=== PATIENT | male | born 1950 | race Caucasian/White ===

== ENCOUNTER 2022-03-11 11:32 | Emergency (ER) | payer MEDICARE, SELFPAY ==
[2022-03-11 11:34] VITALS: BP 175/120; PULSE 103; RESP 18; TEMP 37; O2SAT 95; BMI 25.1
--- NOTE | 2022-03-11 11:49 | EX.ED.VIS.UR ---
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 He has had close contact with his friend who he brings with him who currently has had COVID for the past week confirmed by a test. Patient is unvaccinated, and has no medical problems that he knows of because he does not have a PCP nor does he ever go to one. He denies any dyspnea even when he is coughing. ROS ROS ED Constitutional Constitutional ED: Reports body ache(s), chills, fatigue, fever(s), headache(s), malaise and subjective Eyes Eyes: Denies change in vision or diplopia ENT ENT ED: Reports ear pain right (mild discomfort); Denies rhinorrhea or sore throat Cardiovascular Cardiovascular: Denies chest pain or palpitations Respiratory/Chest Respiratory/Chest: Reports cough; Denies dyspnea or dyspnea on exertion Gastrointestinal Gastrointestinal: Reports diarrhea; Denies abdominal pain, nausea or vomiting Genitourinary Genitourinary ED: Denies dysuria or hematuria Musculoskeletal Musculoskeletal: Denies back pain or neck pain Integumentary Denies abscess or rash Neurologic Neurologic: Reports headache(s); Denies paresthesias or weakness Psychiatric Psychiatric: Denies anxiety or suicidal thoughts PFSH PFSH Medical History no medical history no medical history Home Medications lisinopril 10 mg tablet 10 mg PO DAILY #20 tabs 03/11/22 [Rx Last Taken Unknown] Allergy/AdvReac Type Severity Reaction Status Date / Time No Known Allergies Allergy Verified 03/11/22 11:34 EXAM Physical Exam Const Vital Signs: 03/11/22 11:34 Temperature 98.6 F Temperature Source Temporal Pulse Rate 103 H Respiratory Rate 18 Blood Pressure 175/120 H Blood Pressure Mean 138 Pulse Ox 95 Oxygen Delivery Method Room Air Positive well nourished and well developed Constitutional Narrative: Well-appearing, no distress General Appearance ED: well developed and NAD HEENT Reports moist mucous membranes HEENT Narrative: Both TMs completely occluded by impacted cerumen deep in the EAC. No discomfort, edema, or discharge from the EAC with manipulation of the pinna or the tragus. normocephalic and atraumatic Eyes PERRL and EOMs intact bilaterally Neck full ROM, no lymphadenopathy and supple Resp normal respiratory effort and clear to auscultation bilaterally Cardio regular rate, regular rhythm and no murmurs Rate: Negative for tachycardic GI non-tender and non-distended Auscultation: normoactive bowel sounds Palpation: soft Back/Spine no CVA tenderness General Back: other FROM Extremity normal to inspection and no calf tenderness General Extremety ED: Negative for edema, pulses abnormal or tenderness General Extremity: Negative for edema or pulses abnormal Neuro oriented x3, CN's II-XII intact bilaterally, no sensory deficits noted and gait normal Sensorium / Orientation: awake and alert Motor Exam: strength 5/5 throughout Psych mental status grossly normal Skin no rashes or lesions noted and no wounds MDM MDM MDM Narrative Medical decision making narrative: COVID test is positive confirming COVID in this patient with known exposure. He is not hypoxic, he is not in respiratory distress, he is hypertensive which is probably chronic considering the fact that he never follows with a primary care doctor. I will recommend something for his blood pressure and give him a prescription, he does not meet criteria for any of the EUA antivirals right now because he has had symptoms for over 1 week. He does not require hospitalization or any other tests at this time. I discussed outpatient follow-up referred him to a PCP and discussed reasons to return he is comfortable with that plan, supportive care advised. Discharge Plan Triage Chief Complaint: Cough Other Complaint: Shortness of Breath ED Provider: Khanh Rodriguez Dx/Rx/DC Orders Clinical Impression: COVID-19, Episode of hypertension Instructions: Coronavirus Disease 2019 (COVID-19): Caring for Yourself or Others, Hypertension Dc Prescriptions: New lisinopril 10 mg tablet 10 mg PO DAILY Qty: 20 0RF Primary Care Provider: Care Physician,No Primary Referrals: López Velarde MD [Non-Staff] - As soon as possible Activity Restrictions/Additional Instructions: Try to get a home portable pulse oximeter and closely watch your oxygen levels periodically. If you stay below 90% for more than a minute or so, and/or you are feeling like your breathing is getting worse, return to the emergency department for further evaluation. Currently, CDC recommendations state that you should stay home through day 5 of symptoms, then as long as symptoms are improving, if you need to go to work or somewhere else you may for days 6-10 as long as you are wearing a mask the entire time. If you are feeling better after day 10 you may resume life is normal. Disposition Disposition: Home, Self Care
== END 2022-03-11 12:53 | disposition home or self-care (01) ==
PROVIDERS: Emergency Provider Emergency Medicine; Visit Provider Emergency Medicine
DX: U07.1 COVID-19 (principal); I10 Essential (primary) hypertension; R19.7 Diarrhea, unspecified; R51.9 Headache, unspecified; Z28.310 Unvaccinated for COVID-19
CPT/HCPCS: 87428; 99282

== ENCOUNTER 2023-12-14 16:36 | Inpatient (IN) | payer MEDICARE, SELFPAY ==
[2023-12-14] VITALS (10 sets, daily range): BP systolic 144–189; BP diastolic 68–134; PULSE 64–86; RESP 12–20; TEMP 36.3–36.8; O2SAT 95–99; BMI 26.7; BMI 26.4
--- NOTE | 2023-12-14 17:00 | EKG12_ITS ---
Test Reason : CP Blood Pressure : / mmHG Vent. Rate : 072 BPM Atrial Rate : 072 BPM P-R Int : 196 ms QRS Dur : 098 ms QT Int : 376 ms P-R-T Axes : 053 -01 129 degrees QTc Int : 411 ms Normal sinus rhythm Possible Left atrial enlargement Anteroseptal infarct , age undetermined ST & T wave abnormality, consider lateral ischemia Abnormal ECG Confirmed by WENDI WISEMAN, MECHE ([id number]), continuity editor SUNDAY GUERIN ([id number]) on 12/20/2023 6:16:47 AM Referred By: Confirmed By:AZ ADAME MD
--- NOTE | 2023-12-14 17:06 | ED.RN ---
NO OLD EKGS
--- NOTE | 2023-12-14 17:10 | ED.VIS.CHEST ---
HPI History of Present Illness Chief Complaint: Chest Pain Informant: patient and family Narrative Narrative: Patient here multiple complaints. Primary complaint is burning in his abdomen for the past month that is daily does get some relief with antiacids. Reports over the last 6 weeks 70 pound unintentional weight loss. Remote tobacco quit smoking tobacco 4 years ago however does not use marijuana. No history of colonoscopies or endoscopies in the past denies any black or bloody stools. Denies nausea or vomiting. He reports over the past few days noticed some chest heaviness bilateral upper arm pain. States symptoms relieved with antacids. States mild symptoms currently. He has not followed a doctor in 15 to 20 years. He states he last seen a physician was in the ER a year ago when he had COVID. Does not take any daily medications. [facility] Medical History Depression Anxiety Home Medications ?Medication ?Instructions ?Recorded ?Last Taken ?Type lisinopril 10 mg tablet 10 mg PO DAILY #20 tabs 03/11/22 Unknown Rx acetaminophen 325 mg tablet (Pain 650 mg PO Q4H PRN pain 12/14/23 Unknown History Relief (acetaminophen)) bismuth subsalicylate 262 mg/15 mL 524 mg PO Q1H PRN indigestion 12/14/23 Unknown History oral suspension (Digestive Relief) calcium carbonate (Antacid Ext Str 300 mg PO TID PRN dyspepsia 12/14/23 Unknown History (calcium carb)) ibuprofen 200 mg tablet (Advil) 400 mg PO TID PRN pain 12/14/23 Unknown History Allergy/AdvReac Type Severity Reaction Status Date / Time No Known Allergies Allergy Verified 12/14/23 16:36 Social History Smoking Status: Former smoker ROS ROS ED Constitutional Constitutional ED: Reports weight loss; Denies chills, fever(s) or sweats Eyes Eyes: Denies change in vision ENT ENT ED: Denies dysphagia or sore throat Cardiovascular Cardiovascular: Reports chest pain; Denies leg edema, palpitations or racing heartbeat Respiratory/Chest Respiratory/Chest: Denies cough, dyspnea or dyspnea on exertion Gastrointestinal Gastrointestinal: Reports abdominal pain; Denies diarrhea, nausea or vomiting Genitourinary Genitourinary ED: Denies dysuria, hematuria or urinary frequency Musculoskeletal Musculoskeletal: Denies back pain, extremity pain or neck pain Integumentary Denies rash or wounds Neurologic Neurologic: Denies headache(s), paresthesias or weakness Endocrine Endocrinology: Reports other EXAM Physical Exam Const Vital Signs: 12/14/23 16:36 12/14/23 16:46 12/14/23 17:14 Temperature 97.6 F L Temperature Source Temporal Pulse Rate 81 80 Respiratory Rate 18 13 Respiratory Effort Normal Non-Labored Respiratory Pattern Normal Blood Pressure 185/125 H 169/103 H Blood Pressure Mean 145 125 Pulse Ox 99 99 Oxygen Delivery Method Room Air Room Air 12/14/23 18:00 12/14/23 20:12 12/14/23 20:30 Temperature Temperature Source Pulse Rate 74 70 72 Respiratory Rate 14 18 12 Respiratory Effort Respiratory Pattern Blood Pressure 181/91 H 172/116 H 183/97 H Blood Pressure Mean 121 133 122 Pulse Ox 97 98 98 Oxygen Delivery Method Room Air Positive well nourished and well developed General Appearance ED: well developed and NAD HEENT Reports moist mucous membranes normocephalic and atraumatic Eyes EOMs intact bilaterally and conjunctivae normal General Eye ED: Yes normal appearance of both eyes Neck no lymphadenopathy and supple General: Negative for tenderness Chest Wall Chest: Negative for tenderness Resp normal respiratory effort and normal air movement Effort and Inspection: symmetric chest movement; Negative for respiratory distress Cardio regular rate, regular rhythm and no murmurs Peripheral Pulses: pulses 2+ throughout GI normal to inspection, nondistended, normoactive bowel sounds GI Narrative: Mild epigastric tenderness. No guarding or rebound. Negative Restrepo's or McBurney's tenderness. Palpation: Negative for guarding or rebound tenderness present Back/Spine no CVA tenderness and no thoracic nor lumbar tenderness Extremity normal to inspection General Extremety ED: Negative for edema or tenderness General Extremity: Negative for edema Neuro oriented x3 and no sensory deficits noted Sensorium / Orientation: awake and alert Skin no rashes or lesions noted and no wounds Heart Score History: Highly Suspicious ECG: Significant ST-Depression Age: >/= 65 years Risk Factors: 1 or 2 Risk Factors Troponin: >/=3 x Normal Limit Score: 9 MDM MDM MDM Narrative Medical decision making narrative: Interventions / MDM: Differential diagnosis: Non-ST elevated myocardial infarction, acute coronary syndrome Diagnosis considered but do not suspect: Masses however image studies were negative. My EKG interpretation: Sinus rate of 72, nonspecific T depressions lateral leads. No elevations. No old for comparison. Imaging independently reviewed and interpreted by myself: CT chest abdomen and pelvis: No masses, no acute process. Also read by radiology. External documents reviewed: ED visit 2021. Test considered but not ordered:N/A ED course: Patient nontoxic. Reported chest pains along with abdominal discomfort with reported unintentional weight loss of over 70 pounds. Will obtain EKG cardiac workup. Obtain abdominal labs. However we will plan for CT chest abdomen pelvis IV contrast to rule out cancers. EKG sinus rhythm, rate nonspecific ST depression lateral leads less than 0.5 mm. No elevations. 1834: Patient states very minimal symptoms at this time. He returned from CT. His troponin did return at 141. Creatinine 1.29 hemoglobin 15.6. I discussed NSTEMI concerns with the patient. Review of his CT by myself did not appreciate any masses. Discussed unclear for his weight loss at this time pending final read. Will plan for admission and anticoagulants after CT read. CT chest abdomen pelvis no masses. No acute process. Patient treated with aspirin and started on a heparin drip. On reevaluation he was symptom-free. All discussed with on-call cardiology Dr. Cuellar, agrees with heparin at this time. Would like his echocardiogram in the hospital by hospitalist as today is Saturday in a week given. He would like to continue troponin checks. This was discussed with hospitalist Dr. Montez for admission to PCU. Of note, reviewed patient's records from his ED visit February 2022, he had a weight of 81 kg and today's weight is 86 kg. Re-evaluation: stable Disposition discussed with patient/family/significant other: Patient Case discussed with consulting clinician: N/A This note was generated with [employer] dictation software. It may contain incorrect words, spelling, and punctuation that were not noted in checking the note before signing. Lab Data Labs: Laboratory Results - last 24 hr 12/14/23 12/14/23 12/14/23 17:10 18:55 20:17 WBC 9.3 RBC 5.12 Hgb 15.6 Hct 47.1 MCV 92.0 MCH 30.5 MCHC 33.1 RDW Std Deviation 41.6 RDW Coeff of Ivette 12.1 Plt Count 212 MPV 11.7 Immature Gran % (Auto) 0.200 Neut % (Auto) 62.7 Lymph % (Auto) 26.8 [place] % (Auto) 7.3 Eos % (Auto) 2.4 Baso % (Auto) 0.6 Absolute Neuts (auto) 5.8 Absolute Lymphs (auto) 2.48 Nucleated RBC % 0 PT 14.0 INR 1.1 APTT 28.4 Sodium 144 Potassium 3.8 Chloride 112 H Carbon Dioxide 28.0 Anion Gap 4 L BUN 19 H Creatinine 1.29 Estim Creat Clear Calc 55.94 Est GFR (MDRD) Af Amer 70 Est GFR (MDRD) Non-Af 58 L BUN/Creatinine Ratio 14.7 Glucose 114 H Calcium 9.2 Total Bilirubin 0.40 AST 18 ALT 32 Alkaline Phosphatase 91 Troponin I High Sens 141 H* 330 H* Total Protein 7.6 Albumin 3.6 Globulin 4.0 Albumin/Globulin Ratio 0.9 Lipase 22 TSH 2.880 Radiography Diagnostic Testing: Clinical Impression(s) from Imaging Studies Chest/Abdomen/Pelvis CT 12/14/23 18:14 IMPRESSION: Colonic diverticulosis. Small fatty umbilical hernia. Borderline prominence of the ascending aorta. Electronically Signed: Ryne Gaxiola DO at 19:40 EDT Reading Location ID and State: [facility] / [place] Tel [phone], Service support , Critical Care Time Critical Care Time: Yes Critical care time (excluding procedures): 30-74 minutes, Including time spent:, Discussing w/Patient &/or Family/Optomechanical Technician, Discussing w/Consultants, Arranging Admission or Transfer, Performing Direct Patient Care at Bedside and - (40 minutes) Discharge Plan Dx/Rx/DC Orders Clinical Impression: NSTEMI, initial episode of care, Uncontrolled hypertension, History of tobacco abuse, Cannabis abuse Disposition Disposition: Acute Care Hospital [facility] Discharge Date/Time: 12/14/23 21:35
[2023-12-14] MEDS: 0.9% Normal Saline (500mL Bag) 500 ML 1000 ML IV (17:12)
[2023-12-14 17:26] LABS: Absolute Lymphocyte Count 2.48 X10^3/uL (0.83-4.51); Absolute Neutrophil Count 5.8 X10^3/uL (2.0-7.7); Basophil# 0.06 X10^3/uL; Basophil% 0.6 % (0-1); Eosinophil# 0.22 X10^3/uL; Eosinophils% 2.4 % (0-5); Hematocrit 47.1 % (40-54); Hemoglobin 15.6 g/dL (13.0-16.5); Lymphocyte # 2.48 X10^3/ul (0.83-4.51); Lymphocyte % 26.8 % (19-41); Mean Corp Hgb Conc 33.1 g/dL (32-36); Mean Corpuscular Hgb 30.5 pg (27.0-32.0); Mean Platelet Vol. 11.7 fl (6.2-12.0); Monocyte# 0.68 X10^3/uL; Monocyte% 7.3 % (0-10); NRBC Flagged by Analyzer 0 % (0-5); Neutrophil # 5.81 X10^3/uL (2.7-7.7); Neutrophil % 62.7 % (47-70); Platelet Count 212 K/mm3 (150-450); RBC Distribution Width CV 12.1 % (11.6-14.6); RBC Distribution Width SD 41.6 fl (35.1-43.9); Red Blood Count 5.12 M/mm3 (4.6-6.2); White Blood Count 9.3 K/mm3 (4.4-11.0)
[2023-12-14 18:01] LABS: ALB/GLOB Ratio 0.9 RATIO (0.9-2.4); AST(SGOT) 18 U/L (15-37); Alanine Aminotransfer ALT/SGPT 32 U/L (16-61); Albumin, Serum 3.6 g/dL (3.2-5.0); Alkaline Phosphatase 91 U/L (45-117); Anion Gap 4 (5-15); BUN 19 mg/dL (7-18); BUN/Creat Ratio 14.7 RATIO (10-20); Calcium,Total 9.2 mg/dL (8.5-10.1); Chloride 112 mmol/L (98-107); Creatinine, Serum 1.29 mg/dL (0.70-1.30); EST Glomerular Filtration Rate 58 mL/min (>60); Est Glom Filt Rate - Afr Amer 70 mL/min (>60); Estimated Creatinine Clearance 55.94 ml/min; Glucose 114 mg/dL (74-106); Lipase 22 U/L (13-75); Potassium 3.8 mmol/L (3.5-5.1); Protein, Total 7.6 g/dL (6.4-8.2); Sodium Level 144 mmol/L (136-145); Troponin-I HS (w/2H Reflex) 141 pg/mL (3.0-78.0)
--- NOTE | 2023-12-14 18:14 | CT_ITS ---
STUDY: CT CHEST, ABDOMEN T PELVIS WITH CONTRAST REASON FOR EXAM: Male, 72 years old. chest pain, abdominal pain -- 70lb weight loss in 6 weeks RADIATION DOSAGE (If Supplied By Facility): CTDIvol = ( 20.69 ) mGy, DLP = ( 1509.61 ) mGycm TECHNIQUE: Transaxial imaging was performed following intravenous administration of IV 100mL Isovue-370. The protocol utilizes one or more of the following dose reduction techniques: automated exposure control, adjustment of mA and/or kV according to patient size,and/or use of iterative reconstruction technique. COMPARISON: FINDINGS: CHEST The lungs are normal. There is no demonstrated pleural abnormality. Normal heart and pericardium. Normal mediastinum. Normal hilar regions. Normal unenhanced pulmonary arteries. Borderline ascending aorta measuring 4 cm.. Normal aorta arch and descending thoracic aorta. Normal osseous structures. ABDOMEN Normal liver. Normal gallbladder and extrahepatic biliary system. Normal spleen. Normal pancreas. Normal bilateral adrenal glands. Normal right kidney. Normal left kidney. Normal visualized stomach. Normal small intestine. Diverticulosis of the colon. The appendix is visualized and appears normal. Normal abdominal aorta. Normal inferior vena cava. Normal retroperitoneum. Small fatty umbilical hernia. Degenerative vertebral changes. Scoliosis. PELVIS Normal urinary bladder. There is no pelvic fluid. There is no pelvic lymphadenopathy or mass lesion. Normal visualized pelvic arteries. CT/CT Chest, Abd, Pel w/Contrast IMPRESSION: Colonic diverticulosis. Small fatty umbilical hernia. Borderline prominence of the ascending aorta. Electronically Signed: Ryne Gaxiola DO at 19:40 EDT ,
[2023-12-14 19:19] LABS: Reflex Troponin-HS? (from REC) Y
[2023-12-14 19:50] LABS: Troponin-I HS 330 pg/mL (3.0-78.0)
[2023-12-14] MEDS: HEPARIN/D5w 25,000 UNITS 25,000 UNITS/250 ML IV.SOLN. 10 UNITS CONT INF (20:08)
[2023-12-14] MEDS: Aspirin 81 MG TAB.CHEW 324 MG PO (20:08)
--- NOTE | 2023-12-14 20:08 | PCM.HP.STD ---
[facility] - General General Date of Admission: 12/14/23 Date of Service: 12/14/23 Chief Complaint: Chest Pain, Abdominal Pain and Weight Loss. HPI Narrative ANTONIO TANNER, is a 72 M with a past medical history of essential hypertension, overweight; with BMI of 26.8 this admission, history of tobacco abuse; quit ~4 years ago, cannabis abuse, strong family history of CAD in his father and sister, history of COVID-19 (2021), history of depression with anxiety and medical noncompliance who presents to [facility] complaining of chest pain, abdominal pain and weight loss. Mr. Tanner reports his symptoms began approximately six weeks prior to admission with with an unintentional ~70# weight loss. Then about one month ago he began to develop severe daily abdominal pain that was epigastric and burning treated with OTC antacids as needed. Then for the past few days he has noticed a sensation of chest heaviness that radiates into both of his arms so he finally decided to come in for further evaluation and treatment. He further explained that he has not been followed by a PCP for the past 15-20 years with no endoscopies or health maintenance and he is currently taking no medications. He denies associated fever, chills, nausea, vomiting, diaphoresis, black or bloody stools, leg swelling, known previous PR or other recent illness/traumatic injury. In the ER he was noted to have an elevated initial troponin 141 pg/mL present on admission followed by a second upwardly trending troponin of 330 pg/mL that surged to 5,933 pg/mL consistent with NSTEMI in the setting of previous tobacco abuse and chronic medical noncompliance and he was then admitted to the PCU for ongoing care for a stay that is expected to extend beyond 2 midnights. [facility] Medical History Depression Anxiety Home Medications ?Medication ?Instructions ?Recorded ?Last Taken ?Type lisinopril 10 mg tablet 10 mg PO DAILY #20 tabs 03/11/22 Unknown Rx acetaminophen 325 mg tablet (Pain 650 mg PO Q4H PRN pain 12/14/23 Unknown History Relief (acetaminophen)) bismuth subsalicylate 262 mg/15 mL 524 mg PO Q1H PRN indigestion 12/14/23 Unknown History oral suspension (Digestive Relief) calcium carbonate (Antacid Ext Str 300 mg PO TID PRN dyspepsia 12/14/23 Unknown History (calcium carb)) ibuprofen 200 mg tablet (Advil) 400 mg PO TID PRN pain 12/14/23 Unknown History Allergy/AdvReac Type Severity Reaction Status Date / Time No Known Allergies Allergy Verified 12/14/23 16:36 Social History Smoking Status: Former smoker ROS ROS Narrative Review of Systems: Constitutional: Patient admits to recent unintentional weight loss of ~70# but he denies fever or chills as per HPI. Eyes: Patient denies changes in vision or discharge from eyes. ENT: Patient denies headache, runny nose or sore throat. CV: Patient admits to chest pain radiating to his arms as per HPI. He denies palpitations or heart racing. Resp: Patient denies SOB or cough. GI: Patient admits to abdominal pain but he denies nausea, vomiting, diarrhea or constipation. : Patient denies dysuria, hematuria or urinary hesitancy. MSK: Patient denies arthralgias or myalgias. Skin: Patient denies rash, abscess or jaundice. Psych: Patient denies symptoms of uncontrolled depression or anxiety. Neuro: Patient denies headache, paresthesias or focal neurologic weakness. Allergy: Patient denies lip swelling, tongue swelling or urticaria. Hematology: Patient denies easy bleeding or easy bruisability. Endocrinology: Patient denies polyuria, polydipsia or polyphagia. 14 point ROS otherwise negative except for positives noted above in HPI. Vital Signs Vital Signs Vital Signs: 12/14/23 16:36 12/14/23 16:46 12/14/23 17:14 Temperature 97.6 F L Temperature Source Temporal Pulse Rate 81 80 Respiratory Rate 18 13 Respiratory Effort Normal Non-Labored Respiratory Pattern Normal Blood Pressure 185/125 H 169/103 H Blood Pressure Mean 145 125 Pulse Ox 99 99 Oxygen Delivery Method Room Air Room Air 12/14/23 18:00 Temperature Temperature Source Pulse Rate 74 Respiratory Rate 14 Respiratory Effort Respiratory Pattern Blood Pressure 181/91 H Blood Pressure Mean 121 Pulse Ox 97 Oxygen Delivery Method Room Air Weight Weight: 192 lb Body Mass Index (BMI) 26.7 Physical Exam Const alert, oriented x3, no apparent distress and average body habitus General Appearance: cooperative HEENT normocephalic, head/scalp atraumatic, hearing grossly normal bilaterally and moist oral mucous membranes Eyes PERRL and EOMs intact bilaterally Neck no lymphadenopathy and supple Resp normal respiratory effort, no retractions, no use of accessory muscles and clear to auscultation bilaterally Cardio regular rate and regular rhythm GI normal to inspection, nondistended, normoactive bowel sounds, soft to palpation and non-distended GI Narrative: Mild epigastric TTP. Extremity normal to inspection, full ROM and no clubbing, cyanosis or edema Skin Skin Narrative: Patient has no evidence of rash, abscess or jaundice. Neuro oriented x3, CN's II-XII intact bilaterally, moves all extremities and no focal motor deficits Sensorium / Orientation: awake, alert, oriented to person, oriented to place and oriented to time Speech: speech normal Motor Exam: strength 5/5 throughout Psych affect normal Results Medical Records Data Attestation: I reviewed the patient's medical records Lab / Micro Data Attestation: I reviewed the patient's lab results. 12/15/23 02:01 12/15/23 02:01 Labs: Laboratory Results - last 24 hr 12/14/23 17:10: WBC 9.3, RBC 5.12, Hgb 15.6, Hct 47.1, MCV 92.0, MCH 30.5, MCHC 33.1, RDW Std Deviation 41.6, RDW Coeff of Ivette 12.1, Plt Count 212, MPV 11.7, Immature Gran % (Auto) 0.200, Neut % (Auto) 62.7, Lymph % (Auto) 26.8, [place]er % (Auto) 7.3, Eos % (Auto) 2.4, Baso % (Auto) 0.6, Absolute Neuts (auto) 5.8, Absolute Lymphs (auto) 2.48, Nucleated RBC % 0, Sodium 144, Potassium 3.8, Chloride 112 H, Carbon Dioxide 28.0, Anion Gap 4 L, BUN 19 H, Creatinine 1.29, Estim Creat Clear Calc 55.94, Est GFR (MDRD) Af Amer 70, Est GFR (MDRD) Non-Af 58 L, BUN/Creatinine Ratio 14.7, Glucose 114 H, Calcium 9.2, Total Bilirubin 0.40, AST 18, ALT 32, Alkaline Phosphatase 91, Troponin I High Sens 141 H*, Total Protein 7.6, Albumin 3.6, Globulin 4.0, Albumin/Globulin Ratio 0.9, Lipase 22 12/14/23 18:55: Troponin I High Sens 330 H* Imaging Radiology Impression Chest/Abdomen/Pelvis CT 12/14/23 18:14 IMPRESSION: Colonic diverticulosis. Small fatty umbilical hernia. Borderline prominence of the ascending aorta. Electronically Signed: Ryne Gaxiola DO at 19:40 EDT Reading Location ID and State: [facility] / [place] Tel [phone], Service support , Assessment & Plan Assessment/Plan (1) NSTEMI, initial episode of care: (2) Uncontrolled hypertension: (3) Medical non-compliance: (4) History of tobacco abuse: (5) GERD (gastroesophageal reflux disease): QUALIFIERS: Esophagitis presence: esophagitis presence not specified Qualified Code(s): K21.9 - Gastro-esophageal reflux disease without esophagitis (6) Cannabis abuse: PLAN: Plan 1. NSTEMI; evidenced by elevated initial troponin 141 pg/mL present on admission followed by a second upwardly trending troponin of 330 pg/mL with a strong family history of CAD in his father and sister - Admit to PCU. Continue IV Heparin and ECASA begun in the ER and add statin plus Plavix. Serialize troponin. Check echocardiogram to evaluate LVEF. Give Tylenol prn [id number] (level 1-5/10) pain or fever. Give Morphine IV prn do severe (level 6-10/10) pain. Finally, we will consult [facility] to see this patient on-rounds in the AM for recommendations regarding LHC in the AM with help appreciated in advance. 2. Uncontrolled Hypertension of 185/125 mmHg present on admission in the setting of Chronic Medical Noncompliance complicating #1 - Start Metoprolol 50 mg PO BID plus give prn IV Hydralazine for systolic blood pressure > 160 mmHg. 3. History of Chronic Tobacco Abuse (stopped ~4 years ago) with switch to Cannabis Abuse compounding #1 & #2 - Cannabis Cessation will be strongly encouraged. 4. Suspected GERD with chronic epigastric abdominal pain treated with OTC antacids adding to the complexity of #1 - #3 - Start Protonix 40 mg PO daily and consider referral to GI after discharge for outpatient endoscopic evaluation with possible PUD. 5. Overweight; with BMI of 26.8 this admission - Patient allegedly recently lost ~70#. Check TSH. 6. History of COVID-19 (2021) - Noted. 7. History of depression with anxiety - Stable with patient currently on no psychotropic agents. 8. DVT prophylaxis - Patient already on IV Heparin for #1. Total time: Approximately 75 minutes. Charges/Coding Visit Charges Inpatient E&M: 28251 Init Hosp L3
[2023-12-14] MEDS: Heparin Injection (Vial) 5,000 UNIT/ML VIAL 4000 UNIT IV (20:19)
[2023-12-14 20:44] LABS: International Normalized Ratio 1.1
[2023-12-14 20:45] LABS: Partial Thromboplast Time 28.4 Seconds (24.1-36.2)
--- NOTE | 2023-12-14 20:49 | EKG12_ITS ---
Test Reason : AM EKG Blood Pressure : / mmHG Vent. Rate : 064 BPM Atrial Rate : 064 BPM P-R Int : 182 ms QRS Dur : 096 ms QT Int : 418 ms P-R-T Axes : 027 -14 107 degrees QTc Int : 431 ms Normal sinus rhythm Inferior infarct , age undetermined Anteroseptal infarct , age undetermined T wave abnormality, consider lateral ischemia Abnormal ECG When compared with ECG of 15-DEC-2023 04:54, MANUAL COMPARISON REQUIRED, DATA IS UNCONFIRMED Confirmed by WENDI WISEMAN, MECHE ([id number]), newspaper editor managing SUNDAY GUERIN ([id number]) on 12/20/2023 9:52:25 AM Referred By: VALVERDE Confirmed By:AZ ADAME MD
[2023-12-14] MEDS: Pantoprazole Sodium 40 MG Tablet PO (22:11)
[2023-12-14] MEDS: Atorvastatin Calcium 40 MG Tablet PO (22:11)
[2023-12-14] MEDS: Clopidogrel Bisulfate 75 MG Tablet PO (22:11)
[2023-12-14] MEDS: Metoprolol Tartrate 50 MG Tablet PO (22:11)
[2023-12-14 23:40] LABS: Troponin-I HS 5933 pg/mL (3.0-78.0)
[2023-12-15] VITALS (11 sets, daily range): BP systolic 105–134; BP diastolic 72–99; PULSE 59–91; RESP 16–18; TEMP 36.3–36.6; O2SAT 93–96
[2023-12-15 02:20] LABS: Hematocrit 43.9 % (40-54); Hemoglobin 14.8 g/dL (13.0-16.5); Mean Corp Hgb Conc 33.7 g/dL (32-36); Mean Corpuscular Hgb 30.6 pg (27.0-32.0); Mean Corpuscular Volume 90.9 fL (80-94); Mean Platelet Vol. 11.6 fl (6.2-12.0); Platelet Count 212 K/mm3 (150-450); RBC Distribution Width CV 12.2 % (11.6-14.6); RBC Distribution Width SD 40.3 fl (35.1-43.9); Red Blood Count 4.83 M/mm3 (4.6-6.2); White Blood Count 10.4 K/mm3 (4.4-11.0)
[2023-12-15 02:30] LABS: Partial Thromboplast Time 61.1 Seconds (24.1-36.2)
[2023-12-15 02:43] LABS: D-Dimer Quantitative (DVT/PE) < 0.27 FEU/ug/m (0.27-0.49)
[2023-12-15 02:46] LABS: ALB/GLOB Ratio 0.9 RATIO (0.9-2.4); AST(SGOT) 69 U/L (15-37); Alanine Aminotransfer ALT/SGPT 35 U/L (16-61); Albumin, Serum 3.3 g/dL (3.2-5.0); Alkaline Phosphatase 76 U/L (45-117); Anion Gap 6 (5-15); BUN 14 mg/dL (7-18); BUN/Creat Ratio 14.6 RATIO (10-20); Calcium,Total 9.2 mg/dL (8.5-10.1); Chloride 112 mmol/L (98-107); Cholesterol 161 mg/dL (200); Creatinine, Serum 0.96 mg/dL (0.70-1.30); EST Glomerular Filtration Rate 82 mL/min (>60); Est Glom Filt Rate - Afr Amer 99 mL/min (>60); Estimated Creatinine Clearance 75.17 ml/min; Globulin 3.7 g/dL (2.2-4.2); Glucose 114 mg/dL (74-106); High Density Lipoprotein 41 mg/dL; Potassium 3.5 mmol/L (3.5-5.1); Sodium Level 141 mmol/L (136-145); Triglycerides 117 mg/dL; Very Low Density Lipoprotein 23 mg/dL (5-40)
--- NOTE | 2023-12-15 04:48 | EKG12_ITS ---
Test Reason : CP Blood Pressure : / mmHG Vent. Rate : 052 BPM Atrial Rate : 052 BPM P-R Int : 200 ms QRS Dur : 092 ms QT Int : 436 ms P-R-T Axes : 044 -29 112 degrees QTc Int : 405 ms Sinus bradycardia with sinus arrhythmia Inferior infarct , age undetermined Anteroseptal infarct , age undetermined ST & T wave abnormality, consider lateral ischemia Abnormal ECG When compared with ECG of 14-DEC-2023 22:07, MANUAL COMPARISON REQUIRED, DATA IS UNCONFIRMED Confirmed by WENDI WISEMAN, MECHE ([id number]), industrial editor SUNDAY GUERIN ([id number]) on 12/20/2023 9:53:09 AM Referred By: VALVERDE Confirmed By:AZ ADAME MD
[2023-12-15] MEDS: Nitroglycerin Oint 1 INCH PACKET TD ×3 (05:54→18:41)
--- NOTE | 2023-12-15 05:55 | ECHOD_ITS ---
Reason For Study: Chest pain Procedure This was a 2D Doppler, Color Flow transthoracic echocardiogram. Exam performed portable in patient room. Left Ventricle Normal LV size. The estimated ejection fraction is 40-45 %. Unable to assess diastolic dysfunction. Hypokinesis of the septum, anterior wall, apex. Right Ventricle Normal RV size. Normal systolic function. Atria The left and right atria are normal. No doppler evidence for ASD. Mitral Valve There is moderate mitral annular calcification. There is no mitral valve stenosis. Trivial mitral valve insufficiency. Tricuspid Valve There is no tricuspid stenosis. Trivial tricuspid valve insufficiency. Unable to estimate RV systolic pressure due to insufficient tricuspid regurgitant envelope. Aortic Valve Trisinus/trileaflet aortic valve. Aortic sclerosis, no stenosis. There is no aortic stenosis. Mild (1+) aortic valve insufficiency. Pulmonic Valve There is no pulmonic valvular stenosis. No pulmonic valve insufficiency. Great Vessels Normal aortic root. Pericardium/Pleural No pericardial effusion. MMode/2D Measurements & Calculations LVIDd: 5.1 cm IVSd: 1.2 cm Ao root diam: 3.9 cm LVIDs: 3.8 cm LVPWd: 1.2 cm RVDd: 2.7 cm FS: 24.3 % LAV(MOD-bp): 64.7 ml LVAd ap4: 40.4 cm2 LVAd ap2: 36.6 cm2 LAV(MOD-bp) Indexed: 31.4 ml/m2 LVLd ap4: 9.9 cm LVLd ap2: 9.8 cm LAV(MOD-sp2): 59.3 ml EDV(MOD-sp4): 137.5 ml EDV(MOD-sp2): 112.2 ml LAV(MOD-sp4): 54.1 ml EDV(sp4-el): 140.7 ml EDV(sp2-el): 115.6 ml LVAs ap4: 29.7 cm2 LVAs ap2: 27.1 cm2 LVLs ap4: 9.1 cm LVLs ap2: 9.2 cm ESV(MOD-sp4): 80.7 ml ESV(MOD-sp2): 66.7 ml ESV(sp4-el): 82.1 ml ESV(sp2-el): 67.8 ml EF(MOD-sp4): 41.3 % EF(MOD-sp2): 40.6 % EF(sp4-el): 41.7 % SV(MOD-sp4): 56.8 ml SV(MOD-sp2): 45.5 ml SV(sp4-el): 58.6 ml LA dimension(2D): 4.0 cm LA A4 area: 17.7 cm2 RA A4 area: 12.8 cm2 Time Measurements MV dec time: 0.18 sec Doppler Measurements & Calculations MV E max nate: 81.1 cm/sec Lat Peak E' Nate: 6.7 cm/sec Med Peak E' Nate: 4.4 cm/sec MV A max nate: 103.2 cm/sec E/E' lat: 12.1 E/E' med: 18.3 MV E/A: 0.79 MV V2 max: 122.9 cm/sec MV dec slope: 461.9 cm/sec2 Ao V2 max: 119.3 cm/sec MV max P.0 mmHg Ao max P.7 mmHg MV V2 mean: 48.0 cm/sec Ao V2 mean: 88.0 cm/sec MV mean P.2 mmHg Ao mean P.6 mmHg MV V2 VTI: 40.4 cm Ao V2 VTI: 30.4 cm AV (velocity ratio): 0.70 AI max nate: 415.9 cm/sec LV V1 max: 90.5 cm/sec PA V2 max: 60.9 cm/sec AI max P.2 mmHg LV V1 max P.3 mmHg PA V2 mean: 43.6 cm/sec AI dec slope: 189.2 cm/sec2 LV V1 mean P.0 mmHg AI P1/2t: 643.8 msec LV V1 mean: 66.6 cm/sec LV V1 VTI: 21.1 cm TR max nate: 186.7 cm/sec TR max P.9 mmHg ECHO/Echo Complete Interpretation Summary The estimated ejection fraction is 40-45 %. Hypokinesis of the septum, anterior wall, apex Unable to assess diastolic dysfunction. Trivial mitral valve insufficiency. Mild (1+) aortic valve insufficiency. Ordering Physician: Shaun Pickett Performed By: Deepa Pham RCS
[2023-12-15] MEDS: Aspirin E.C. 81 MG Tablet PO (08:06)
[2023-12-15] MEDS: Metoprolol Tartrate 50 MG Tablet PO (08:06)
[2023-12-15] MEDS: Pantoprazole Sodium 40 MG Tablet PO (08:06)
[2023-12-15] MEDS: Clopidogrel Bisulfate 75 MG Tablet PO (08:06)
[2023-12-15 08:31] LABS: Partial Thromboplast Time 55.3 Seconds (24.1-36.2)
--- NOTE | 2023-12-15 09:19 | PCM.PN.HOSP ---
Reason for Visit Reason for Visit: Diagnoses Cannabis abuse, uncomplicated (12/14/23) Essential (primary) hypertension (12/14/23) Non-ST elevation (NSTEMI) myocardial infarction (12/14/23) Gastro-esophageal reflux disease without esophagitis (12/14/23) Personal history of nicotine dependence (12/14/23) Patient's noncompliance with other medical treatment and regimen due to unspecified reason (12/14/23) Subjective Subjective Feels well. No chest pain. Objective Data Objective Data Vital Signs: Vital Signs Temp Pulse Resp BP Pulse Ox O2 Del Method 36.5 C L 61 18 120/76 96 Room Air 12/15/23 08:09 12/15/23 08:09 12/15/23 08:09 12/15/23 08:09 12/15/23 08:21 12/15/23 08:21 Oxygen Delivery Method Room Air Weight: 85.9 kg Body Mass Index (BMI) 26.4 Intake & Output: Intake and Output for Last 24 Hours 12/13/23 12/14/23 12/15/23 23:59 23:59 23:59 Intake Total 620 / 620 240 / 240 Balance 620 / 620 240 / 240 Lab / Micro Data 12/15/23 02:01 12/15/23 02:01 Labs: Laboratory Results - last 24 hr 12/14/23 17:10: WBC 9.3, RBC 5.12, Hgb 15.6, Hct 47.1, MCV 92.0, MCH 30.5, MCHC 33.1, RDW Std Deviation 41.6, RDW Coeff of Ivette 12.1, Plt Count 212, MPV 11.7, Immature Gran % (Auto) 0.200, Neut % (Auto) 62.7, Lymph % (Auto) 26.8, [place] % (Auto) 7.3, Eos % (Auto) 2.4, Baso % (Auto) 0.6, Absolute Neuts (auto) 5.8, Absolute Lymphs (auto) 2.48, Nucleated RBC % 0, Sodium 144, Potassium 3.8, Chloride 112 H, Carbon Dioxide 28.0, Anion Gap 4 L, BUN 19 H, Creatinine 1.29, Estim Creat Clear Calc 55.94, Est GFR (MDRD) Af Amer 70, Est GFR (MDRD) Non-Af 58 L, BUN/Creatinine Ratio 14.7, Glucose 114 H, Calcium 9.2, Total Bilirubin 0.40, AST 18, ALT 32, Alkaline Phosphatase 91, Troponin I High Sens 141 H*, Total Protein 7.6, Albumin 3.6, Globulin 4.0, Albumin/Globulin Ratio 0.9, Lipase 22, TSH 2.880 12/14/23 18:55: Troponin I High Sens 330 H* 12/14/23 20:17: PT 14.0, INR 1.1, APTT 28.4 12/14/23 22:30: Troponin I High Sens 5933 H* 12/15/23 02:01: WBC 10.4, RBC 4.83, Hgb 14.8, Hct 43.9, MCV 90.9, MCH 30.6, MCHC 33.7, RDW Std Deviation 40.3, RDW Coeff of Ivette 12.2, Plt Count 212, MPV 11.6, APTT 61.1 H, D-Dimer Quant (PE/DVT) < 0.27 L, Sodium 141, Potassium 3.5, Chloride 112 H, Carbon Dioxide 23.0, Anion Gap 6, BUN 14, Creatinine 0.96, Estim Creat Clear Calc 75.17, Est GFR (MDRD) Af Amer 99, Est GFR (MDRD) Non-Af 82, BUN/Creatinine Ratio 14.6, Glucose 114 H, Calcium 9.2, Total Bilirubin 0.50, AST 69 H, ALT 35, Alkaline Phosphatase 76, Total Protein 7.0, Albumin 3.3, Globulin 3.7, Albumin/Globulin Ratio 0.9, Triglycerides 117, Cholesterol 161, LDL Cholesterol 97, VLDL Cholesterol 23, HDL Cholesterol 41, TSH 4.170 H 12/15/23 08:00: APTT 55.3 H Radiography Diagnostic Testing: Radiology Impression Chest/Abdomen/Pelvis CT 12/14/23 18:14 IMPRESSION: Colonic diverticulosis. Small fatty umbilical hernia. Borderline prominence of the ascending aorta. Electronically Signed: Ryne Gaxiola DO at 19:40 EDT , Physical Exam Const alert and no apparent distress HEENT head/scalp atraumatic and moist oral mucous membranes Resp normal respiratory effort, no retractions, no use of accessory muscles and clear to auscultation bilaterally Cardio regular rate, regular rhythm, S1 normal heart sound and S2 normal heart sound GI normal to inspection, nondistended, normoactive bowel sounds, soft to palpation, non-tender and non-distended Extremity normal to inspection Psych affect normal Assessment & Plan Assessment/Plan (1) NSTEMI, initial episode of care: (2) Uncontrolled hypertension: (3) Medical non-compliance: (4) History of tobacco abuse: (5) GERD (gastroesophageal reflux disease): QUALIFIERS: Esophagitis presence: esophagitis presence not specified Qualified Code(s): K21.9 - Gastro-esophageal reflux disease without esophagitis (6) Cannabis abuse: PLAN: Plan NSTEMI: trops up to 5933. heparin gtt, ASA, clopidogrel. Echo Cards consult. Plan for [facility] on 12/15 Uncontrolled Hypertension 185/125 mmHg present on admission. Improved subsequently. Start Metoprolol 50 mg PO BID plus give prn IV Hydralazine for systolic blood pressure > 160 mmHg. Chronic conditions: Cannabis Abuse: complicates care and recovery Suspected GERD with chronic epigastric: pantoprazole. Follow up with GI as outpt. VTE prophylaxis not indicated as already anticoagulated. Charges/Coding Visit Charges Inpatient E&M: 49478 Subs Hosp L2
--- NOTE | 2023-12-15 11:22 | CON.PCM.CA_ITS ---
Assessment & Plan Assessment/Plan (1) NSTEMI, initial episode of care: PLAN: Patient's symptoms are consistent with angina. He had postprandial discomfort in his lower thorax upper abdomen that he equated to ulcer disease. However it was also concomitant with bilateral arm achiness that occurred simultaneously. This has been going on for approximately a month and he has had a significant weight loss that has not been documented objectively. However, he does explicitly describe significant wasting of his lower extremities and abdominal prominence. The patient's enzymes did go up to 5900 and the last set was back down to 4100. His EKG showed sinus bradycardia at [address]-T wave changes consistent with LVH. When he had an episode of diaphoresis at 0500 hrs. this morning there was no significant new changes on his EKG he consistently has ST segment depression in aVL and V5 and V6. (2) Uncontrolled hypertension: PLAN: Patient's blood pressure is coming under better control with the beta- joss and his JESS inhibitor we reinstituted that he was on in his home environment. (3) Recent unexplained weight loss: PLAN: The patient had an abdominal scan which showed diverticulosis but no significant masses. Given his vivid description of his weight loss further evaluation will be deferred to the primary service. The patient was seen in the emergency department in 2021 and at that time his weight was 81 kg. Last evening when he was in the emergency department he was weighed at 87.1 kg. However he reports significant loss in his abdominal girth and significant muscle wasting of his lower extremities. He had she reports that family members had encouraged him to come to the hospital for evaluation. He had been reluctant to do so and been treating himself homeopathically. PLAN: Plan 1. Continue current medical therapy and add lisinopril 10 mg daily. 2. Will schedule for left heart catheterization tomorrow with Dr. Hayes. 3. Obtain 2D echocardiogram to evaluate potential structural issues or LV dysfunction. 4. Dr. Hayes will be following the patient next week in my absence. HPI Consult Data Date of Consult: 12/15/23 HPI Narrative HPI Narrative: ANTONIO KHOURY, is a 72 M who presents with an unusual constellation of complaints. He originally came to the emergency department because over the last month he has experienced a significant weight loss that he described as 70 pounds. However in 2021 when he was in the emergency department with COVID his weight was 81 kg and on this admission is 87 kg. However he vividly describes a loss of his protuberant abdomen and significant muscle mass in his lower extremities over the last month. He had multiple scans done looking for possible cancer which is what his fear was from coming to the emergency department and all that was found was diverticuli. The patient has a history of intermittent alcohol use and describes himself as a controlled alcoholic. He also uses THC. He is chief complaint was abdominal discomfort which occurred after eating and was associated with bilateral arm discomfort. His initial troponin was 131 it went up to 330 and then to 5900. His EKG was sinus rhythm with ST depressions in aVL and V5 and V6. He did have an episode of diaphoresis approximately 0500 hrs. this morning that resolved with nitroglycerin paste. Currently he is resting comfortably in recumbent position in no distress. The patient is a former smoker, he has a history of hypertension which she has been treating with nontraditional therapies. There is no known definitive family history of coronary disease. He is not aware of his lipid status. And he is not diabetic to his knowledge. [facility] Medical History Depression Anxiety Home Medications ?Medication ?Instructions ?Recorded ?Last Taken ?Type lisinopril 10 mg tablet 10 mg PO DAILY #20 tabs 03/11/22 Unknown Rx acetaminophen 325 mg tablet (Pain 650 mg PO Q4H PRN pain 12/14/23 Unknown History Relief (acetaminophen)) bismuth subsalicylate 262 mg/15 mL 524 mg PO Q1H PRN indigestion 12/14/23 Unknown History oral suspension (Digestive Relief) calcium carbonate (Antacid Ext Str 300 mg PO TID PRN dyspepsia 12/14/23 Unknown History (calcium carb)) ibuprofen 200 mg tablet (Advil) 400 mg PO TID PRN pain 12/14/23 Unknown History Allergy/AdvReac Type Severity Reaction Status Date / Time No Known Allergies Allergy Verified 12/14/23 16:36 Social History Smoking Status: Former smoker ROS Constitutional Constitutional: Reports as per HPI Eyes Eyes: Reports systems reviewed and no addt'l complaints, except as documented ENT HEENT: Reports systems reviewed and no addt'l complaints, except as documented Cardiovascular Cardiovascular: Reports as per HPI Respiratory/Chest Respiratory/Chest: Reports as per HPI Gastrointestinal Gastrointestinal: Reports as per HPI Genitourinary Genitourinary: Reports systems reviewed and no addt'l complaints, except as documented Musculoskeletal Musculoskeletal: Reports as per HPI Integumentary Integumentary: Reports systems reviewed and no addt'l complaints, except as documented Neurologic Neurologic: Reports systems reviewed and no addt'l complaints, except as documented Psychiatric Psychiatric: Reports systems reviewed and no addt'l complaints, except as documented Endocrine Endocrinology: Reports as per HPI Allergic/Immunologic Allergic/Immunologic: Reports systems reviewed and no addt'l complaints, except as documented Physical Exam Const alert and oriented x3 HEENT normocephalic Eyes PERRL Neck no JVD and no carotid bruits Chest inspection of chest normal Resp normal respiratory effort and clear to auscultation bilaterally Cardio regular rate, regular rhythm, S1 normal heart sound, S2 normal heart sound, no murmurs, no rub and no gallops Peripheral Pulses: radial pulses present bilateral 2+, posterior tibial pulses present bilateral 1+ and dorsalis pedis pulses present bilateral 1+ GI soft to palpation Extremity no pedal edema Skin no rashes or lesions noted Neuro Neuro Narrative: Alert and oriented x 3 Psych mental status grossly normal Psych Narrative: Very talkative with somewhat pressured speech. Risk Stratification Risk Stratification Applicable: Yes Age >/= 65: Yes >/= 3 CAD Risk Factors (HTN, HLD, DM, family hx of CAD, or current smoker): No Aspirin Use in the Past 7 Days: No Severe Angina (>/= episodes in 24 hours): Yes EKG ST Changes >/= 0.5mm: No Positive Cardiac Marker: Yes MILANA Risk Stratification Score: 3 MILANA % Risk: 13% Risk Charges/Coding Visit Charges Inpatient E&M: 78120 Init Hosp L3 Objective Data Vital Signs: Vital Signs Temp Pulse Resp BP Pulse Ox O2 Del Method 97.7 F L 61 18 120/76 96 Room Air 12/15/23 08:09 12/15/23 08:09 12/15/23 08:09 12/15/23 08:09 12/15/23 08:21 12/15/23 08:21 Oxygen Delivery Method Room Air Weight: 189 lb 6.033 oz Body Mass Index (BMI) 26.4 Intake & Output: Intake and Output for Last 24 Hours 12/13/23 12/14/23 12/15/23 23:59 23:59 23:59 Intake Total 620 / 620 240 / 240 Balance 620 / 620 240 / 240 Lab / Micro Data 12/15/23 02:01 12/15/23 02:01 Labs: Laboratory Results - last 24 hr 12/14/23 17:10: WBC 9.3, RBC 5.12, Hgb 15.6, Hct 47.1, MCV 92.0, MCH 30.5, MCHC 33.1, RDW Std Deviation 41.6, RDW Coeff of Ivette 12.1, Plt Count 212, MPV 11.7, Immature Gran % (Auto) 0.200, Neut % (Auto) 62.7, Lymph % (Auto) 26.8, Florence % (Auto) 7.3, Eos % (Auto) 2.4, Baso % (Auto) 0.6, Absolute Neuts (auto) 5.8, Absolute Lymphs (auto) 2.48, Nucleated RBC % 0, Sodium 144, Potassium 3.8, C hloride 112 H, Carbon Dioxide 28.0, Anion Gap 4 L, BUN 19 H, Creatinine 1.29, Estim Creat Clear Calc 55.94, Est GFR (MDRD) Af Amer 70, Est GFR (MDRD) Non-Af 58 L, BUN/Creatinine Ratio 14.7, Glucose 114 H, Calcium 9.2, Total Bilirubin 0.40, AST 18, ALT 32, Alkaline Phosphatase 91, Troponin I High Sens 141 H*, Total Protein 7.6, Albumin 3.6, Globulin 4.0, Albumin/Globulin Ratio 0.9, Lipase 22, TSH 2.880 12/14/23 18:55: Troponin I High Sens 330 H* 12/14/23 20:17: PT 14.0, INR 1.1, APTT 28.4 12/14/23 22:30: Troponin I High Sens 5933 H* 12/15/23 02:01: WBC 10.4, RBC 4.83, Hgb 14.8, Hct 43.9, MCV 90.9, MCH 30.6, MCHC 33.7, RDW Std Deviation 40.3, RDW Coeff of Ivette 12.2, Plt Count 212, MPV 11.6, A PTT 61.1 H, D-Dimer Quant (PE/DVT) < 0.27 L, Sodium 141, Potassium 3.5, Chloride 112 H, Carbon Dioxide 23.0, Anion Gap 6, BUN 14, Creatinine 0.96, Estim Creat Clear Calc 75.17, Est GFR (MDRD) Af Amer 99, Est GFR (MDRD) Non-Af 82, BUN/Creatinine Ratio 14.6, Glucose 114 H, Calcium 9.2, Total Bilirubin 0.50, AST 69 H, ALT 35, Alkaline Phosphatase 76, Total Protein 7.0, Albumin 3.3, Globulin 3.7, Albumin/Globulin Ratio 0.9, Triglycerides 117, Cholesterol 161, LDL Cholesterol 97, VLDL Cholesterol 23, HDL Cholesterol 41, TSH 4.170 H 12/15/23 08:00: APTT 55.3 H Rhythm Strip Rhythm Strip: Sinus Rhythm Rate: 60 Cardiology Labs/Tests 12/14/23 17:10: WBC 9.3, RBC 5.12, Hgb 15.6, Hct 47.1, MCV 92.0, MCH 30.5, MCHC 33.1, Plt Count 212, MPV 11.7, Immature Gran % (Auto) 0.200, Neut % (Auto) 62.7, Lymph % (Auto) 26.8, Florence % (Auto) 7.3, Eos % (Auto) 2.4, Baso % (Auto) 0.6, Absolute Neuts (auto) 5.8, Nucleated RBC % 0, Sodium 144, Potassium 3.8, C hloride 112 H, Carbon Dioxide 28.0, Anion Gap 4 L, BUN 19 H, Creatinine 1.29, Est GFR (MDRD) Af Amer 70, Est GFR (MDRD) Non-Af 58 L, BUN/Creatinine Ratio 14.7, Glucose 114 H, Calcium 9.2, Total Bilirubin 0.40 12/14/23 20:17: PT 14.0, INR 1.1, APTT 28.4 12/15/23 02:01: WBC 10.4, RBC 4.83, Hgb 14.8, Hct 43.9, MCV 90.9, MCH 30.6, MCHC 33.7, Plt Count 212, MPV 11.6, APTT 61.1 H, D-Dimer Quant (PE/DVT) < 0.27 L, Sodium 141, Potassium 3.5, Chloride 112 H, Carbon Dioxide 23.0, Anion Gap 6, BUN 14, Creatinine 0.96, Est GFR (MDRD) Af Amer 99, Est GFR (MDRD) Non-Af 82, BUN/Creatinine Ratio 14.6, Glucose 114 H, Calcium 9.2, Total Bilirubin 0.50, Triglycerides 117, Cholesterol 161, LDL Cholesterol 97, VLDL Cholesterol 23, HDL Cholesterol 41 12/15/23 08:00: APTT 55.3 H Rhythm: EKG: ECHO: Stress Test: Cardiac Cath: PCI: CT Surgery: Holter monitor: EPS: PPM: CXR: Chest CT Scan: Radiography Diagnostic Testing: Radiology Impression Chest/Abdomen/Pelvis CT 12/14/23 18:14 IMPRESSION: Colonic diverticulosis. Small fatty umbilical hernia. Borderline prominence of the ascending aorta. Electronically Signed: Ryne Gaxiola DO at 19:40 EDT Reading Location ID and State: [facility] / [place] Tel [phone], Service support ,
[2023-12-15] MEDS: Lisinopril 10 MG Tablet PO (12:50)
[2023-12-15 14:12] LABS: Partial Thromboplast Time 55.3 Seconds (24.1-36.2)
[2023-12-15] MEDS: 0.9% Saline Lock 10 ML Syringe IV (15:25)
[2023-12-15 20:18] LABS: Partial Thromboplast Time 52.6 Seconds (24.1-36.2)
[2023-12-15] MEDS: HEPARIN/D5w 25,000 UNITS 25,000 UNITS/250 ML IV.SOLN. 11 UNITS CONT INF (21:10)
[2023-12-15] MEDS: Acetaminophen 325 MG Tablet 650 MG PO (21:55)
[2023-12-15] MEDS: Atorvastatin Calcium 40 MG Tablet PO (21:55)
[2023-12-16] VITALS (10 sets, daily range): BP systolic 109–150; BP diastolic 72–104; PULSE 52–71; RESP 16; TEMP 36.2–37.1; O2SAT 94–97
[2023-12-16] MEDS: Nitroglycerin Oint 1 INCH PACKET TD ×3 (00:05→11:56)
[2023-12-16 04:13] LABS: Partial Thromboplast Time 135.8 Seconds (24.1-36.2)
--- NOTE | 2023-12-16 05:55 | EKG12_ITS ---
Test Reason : CP ADMISSION Blood Pressure : / mmHG Vent. Rate : 062 BPM Atrial Rate : 062 BPM P-R Int : 196 ms QRS Dur : 092 ms QT Int : 384 ms P-R-T Axes : 048 010 101 degrees QTc Int : 389 ms Normal sinus rhythm with sinus arrhythmia Anteroseptal infarct , age undetermined ST & T wave abnormality, consider lateral ischemia Abnormal ECG When compared with ECG of 14-DEC-2023 17:12, MANUAL COMPARISON REQUIRED, DATA IS UNCONFIRMED Confirmed by WENDI WISEMAN, MECHE ([id number]), material expeditor SUNDAY GUERIN ([id number]) on 12/20/2023 9:53:29 AM Referred By: VALVERDE Confirmed By:AZ ADAME MD
[2023-12-16] MEDS: Metoprolol Tartrate 50 MG Tablet PO (07:55)
[2023-12-16] MEDS: Clopidogrel Bisulfate 75 MG Tablet PO (07:55)
[2023-12-16] MEDS: Aspirin E.C. 81 MG Tablet PO (07:55)
--- NOTE | 2023-12-16 09:16 | CASEMGMT ---
Insurance review for hospitals In-network with?MMO [employer] HMO insurance if transfer is recommended is as follows: [facility], Lisa, GREG, Ray, [facility], [facility], [facility], [facility], [place], [facility] ([facility]), and . Allison Cohen, Discharge Planning Asst.
--- NOTE | 2023-12-16 11:13 | PN_ITS ---
Subjective Subjective Patient seen and examined. His [id number] was by his bedside. He had no active complaints. Review of systems otherwise negative. He is for cardiac cath today. He has remained hemodynamically stable. Objective Data Objective Data Vital Signs: Vital Signs Temp Pulse Resp BP Pulse Ox O2 Del Method 97.2 F L 52 L 16 150/91 H 96 Room Air 12/16/23 11:00 12/16/23 11:00 12/16/23 11:00 12/16/23 11:00 12/16/23 11:00 12/16/23 11:00 Oxygen Delivery Method Room Air Weight: 189 lb 6.033 oz Body Mass Index (BMI) 26.4 Intake & Output: Intake and Output for Last 24 Hours 12/14/23 12/15/23 12/16/23 23:59 23:59 23:59 Intake Total 620 / 620 790 / 790 97.50 / 97.50 Output Total 0 / 0 Balance 620 / 620 790 / 790 97.50 / 97.50 Lab / Micro Data 12/15/23 02:01 12/15/23 02:01 Labs: Laboratory Results - last 24 hr 12/15/23 13:55: APTT 55.3 H 12/15/23 20:00: APTT 52.6 H 12/16/23 03:38: APTT 135.8 H* Rhythm Strip Rhythm Strip: Sinus Rhythm Rate: 60 Physical Exam Const alert, oriented x3, no apparent distress and well nourished General Appearance: cooperative and well developed HEENT normocephalic, head/scalp atraumatic, moist oral mucous membranes and oropharynx normal Eyes PERRL and EOMs intact bilaterally Neck no lymphadenopathy, supple and no JVD Lymph Lymphatic: no lymphadenopathy noted and no lymphedema noted Resp normal respiratory effort, normal air movement and clear to auscultation bilaterally Cardio regular rate, regular rhythm, S1 normal heart sound, S2 normal heart sound and no murmurs GI normal to inspection, nondistended, normoactive bowel sounds, soft to palpation, non-tender and non-distended Extremity normal capillary refill, no clubbing, cyanosis or edema and no calf tenderness General Extremity: no tenderness to palpation of joints or extremities Skin General Skin Exam: no breakdown Neuro CN's II-XII intact bilaterally, no focal motor deficits, no sensory deficits noted and deep tendon reflexes 2+ bilaterally Motor Exam: strength 5/5 throughout Psych thought process normal, cooperative and affect normal Appearance: appropriate Assessment & Plan Assessment/Plan (1) NSTEMI, initial episode of care: PLAN: Plan #Nonstemi * on heparin drip, aspirini and plavix. * 2D echo ordered and pending * cardiology on board. For left heart cath today * #Hypertension * Was poorly controlled. Started on p.o. metoprolol 50 mg twice daily. * IV hydralazine as needed * #Bradycardia: Heart rate today was down to 52. However it has largely been normal. Patient was started on p.o. metoprolol. Will monitor closely as patient is asymptomatic now. #Nicotine dependence: Counseled to quit. #GERD: On pantoprazole. Follow-up with GI on outpatient basis. DVT prophylaxis: Already on heparin drip pending left heart cath Charges/Coding Visit Charges Inpatient E&M: 24267 Subs Hosp L2
[2023-12-16 11:48] LABS: Partial Thromboplast Time 103.8 Seconds (24.1-36.2)
[2023-12-16] MEDS: 0.9% Normal Saline (1000mL) 1,000 ML 60 ML IV (11:50)
[2023-12-16 11:56] LABS: Anion Gap 3 (5-15); BUN 18 mg/dL (7-18); BUN/Creat Ratio 15.9 RATIO (10-20); Calcium,Total 8.7 mg/dL (8.5-10.1); Chloride 111 mmol/L (98-107); Creatinine, Serum 1.13 mg/dL (0.70-1.30); EST Glomerular Filtration Rate 68 mL/min (>60); Est Glom Filt Rate - Afr Amer 82 mL/min (>60); Estimated Creatinine Clearance 63.86 ml/min; Glucose 114 mg/dL (74-106); Sodium Level 139 mmol/L (136-145)
[2023-12-16] MEDS: Lisinopril 10 MG Tablet PO (11:56)
[2023-12-16] MEDS: Pantoprazole Sodium 40 MG Tablet PO (11:56)
--- NOTE | 2023-12-16 12:14 | PCM.DC.SUM ---
Providers Date of Admission: 12/14/23 Date of Discharge: 12/16/23 Primary Care Physician: Jenny Primary Care Phys Consultations 12/14/23 21:44 Consult: Cardiology Routine Consulting Provider: Michelle Ellington Reason for Consult: Chest Pain EMERGENT Consult: No MD Notified: Yes Date Notified: 12/15/23 Time Notified: 05:35 Method of Notification: Text Method of Consult:: In-Person Reason For Visit: NSTEMI, UNCONTROLLED HYPERTENSION AND Diagnosis Discharge Diagnosis (1) NSTEMI, initial episode of care: Status: Acute Code(s): I21.4 - Non-ST elevation (NSTEMI) myocardial infarction Plan #Nonstemi on heparin drip, aspirini and plavix. 2D echo ordered and pending cardiology on board. For left heart cath today #Hypertension Was poorly controlled. Started on p.o. metoprolol 50 mg twice daily. IV hydralazine as needed #Bradycardia: Heart rate today was down to 52. However it has largely been normal. Patient was started on p.o. metoprolol. Will monitor closely as patient is asymptomatic now. #Nicotine dependence: Counseled to quit. #GERD: On pantoprazole. Follow-up with GI on outpatient basis. DVT prophylaxis: Already on heparin drip pending left heart cath Medications at Discharge Home Medications lisinopril 10 mg tablet 10 mg PO DAILY #20 tabs 03/11/22 acetaminophen 325 mg tablet (Pain Relief (acetaminophen)) 650 mg PO Q4H PRN pain 12/14/23 bismuth subsalicylate 262 mg/15 mL oral suspension (Digestive Relief) 524 mg PO Q1H PRN indigestion 12/14/23 calcium carbonate (Antacid Ext Str (calcium carb)) 300 mg PO TID PRN dyspepsia 12/14/23 ibuprofen 200 mg tablet (Advil) 400 mg PO TID PRN pain 12/14/23 Hospital Course Operations None Procedures 2-D Echocardiogram and Cardiac catheterization Summary of Care Provided Minutes Spent on Discharge: 65 Hospital Course: Patient is a 72-year-old male with a past medical history as outlined was admitted through the ED on 12/14/2023 with a complaint of chest pain, abdominal pain and weight loss. His symptoms are started about 6 weeks prior and he also had burning abdominal pain which was mainly epigastric and he was treating it with [id number] antacids. He had a feeling of chest heaviness which radiated to both of his arms. He therefore finally decided to come into the ED for evaluation. He had not seen a PCP for about 20 years. In the ED his initial troponin was elevated and subsequent troponins trended upwards to a peak of 5933. EKG showed no acute ST changes. He was admitted and managed for non-STEMI. Cardiology was consulted. He was placed on aspirin and heparin drip as well as high intensity statin. 2D echo was ordered. His blood pressure was also markedly elevated and so he was diagnosed with uncontrolled hypertension and started on p.o. metoprolol. 2D echo showed EF of 40 to 45% unable to assess diastolic dysfunction. He had hypokinesis of the septum and anterior wall as well as the apex. He had cardiac cath which showed multivessel disease and so patient was deemed as requiring a cardiac cath. He was therefore transferred to [facility] to the care of the cardiothoracic surgeon was transferred on 12/16/2023. He is follow-up with his primary care doctor and with cardiology after discharge from [facility]. Patient seen and examined prior to discharge. He had no active complaints and had an uneventful night. Review of systems otherwise negative. Labs and vitals reviewed. Home medication reviewed and reconciled. Physical Exam Const alert, oriented x3, no apparent distress, average body habitus and well nourished General Appearance: cooperative, comfortable, well kempt and well developed Orientation / Consciousness: awake HEENT normocephalic, head/scalp atraumatic, hearing grossly normal bilaterally, moist oral mucous membranes and oropharynx normal Mouth: oral and palatal mucosa normal Eyes PERRL, EOMs intact bilaterally and conjunctivae normal Neck no lymphadenopathy, supple and no JVD Lymph Lymphatic: no lymphadenopathy noted and no lymphedema noted Resp normal respiratory effort, normal air movement, no retractions, no use of accessory muscles and clear to auscultation bilaterally Cardio regular rate, regular rhythm, S1 normal heart sound, S2 normal heart sound and no murmurs GI normal to inspection, nondistended, normoactive bowel sounds, soft to palpation, non-tender and non-distended Extremity normal to inspection, full ROM, normal capillary refill, no clubbing, cyanosis or edema and no calf tenderness General Extremity: no tenderness to palpation of joints or extremities Skin no rashes or lesions noted General Skin Exam: no breakdown Neuro oriented x3, CN's II-XII intact bilaterally, moves all extremities, no focal motor deficits, no sensory deficits noted and deep tendon reflexes 2+ bilaterally Sensorium / Orientation: awake, alert, oriented to person, oriented to place and oriented to time Speech: speech normal Motor Exam: strength 5/5 throughout Psych thought process normal, cooperative and affect normal Appearance: appropriate Weight / BMI Weight Weight: 189 lb 6.033 oz Body Mass Index (BMI) 26.4 ABG / Lab / Microbiology Data 12/15/23 02:01 12/16/23 11:23 Laboratory: Laboratory Results - last 24 hr 12/15/23 13:55: APTT 55.3 H 12/15/23 20:00: APTT 52.6 H 12/16/23 03:38: APTT 135.8 H* 12/16/23 11:23: APTT 103.8 H*, Sodium 139, Potassium 4.0, Chloride 111 H, Carbon Dioxide 25.0, Anion Gap 3 L, BUN 18, Creatinine 1.13, Estim Creat Clear Calc 63.86, Est GFR (MDRD) Af Amer 82, Est GFR (MDRD) Non-Af 68, BUN/Creatinine Ratio 15.9, Glucose 114 H, Calcium 8.7 Meaningful Use Info Meaningful Use Meaningful Use Diagnoses (Choose all that apply): AMI AMI/Post PCI/Angioplasty Aspirin given w/in 24hrs of arrival?: Yes ASA at discharge?: No Reason ASA not ordered:: Allergy (patient transferred) Antiplatelet Therapy at Discharge:: No Reason Antiplatelet Therapy not ordered:: transferred Statins at discharge?: No Reason statins not ordered:: Allergy (transferred) Kevin/ARB at discharge?: No Reason Kevin/ARB not ordered:: Allergy (transferred) Beta Radha at discharge?: No Reason Beta Radha not ordered:: Allergy (transferred) Done w/ Acute [place] measure.: Yes Ischemic Stroke Statin Dosing Therapy Reference: STATIN DOSE THERAPY REFERENCE: * Patients > 75 years receive moderate or high dose statin therapy. * Patients 75 years or YOUNGER should receive HIGH intensity statin dose unless contraindicated. You will be required to document reason for non-treatment if statin daily dose does not meet guidelines. HIGH DOSE STATIN THERAPY DAILY Atorvastatin > than or = to 40 mg Rosuvastatin > than or = to 20 mg Amlodipine + Atorvastatin > than or = to 2.5/40 mg Ezetimibe + Simvastatin 10/80 mg Simvastatin 80mg Discharge Plan Admission Admit Date/Time: 12/14/23 20:41 Primary Reason for Your Visit: Nonstemi Attending Provider: Danii Gay Primary Care Provider: Care Physician,No Primary Consulting Providers: Bhavya Lainez; Jordin Hung; Madison Oleary; Beltran Cotto; Kareem Wolff; Jhony Arenas; Emely Kendrick; Mor Cuellar; Mayo Hayes; Jimmy Sandoval; Cristhian Goodrich [employer]; Bhavya Summers [employer]; Geni Perdomo; Shaun Pickett; Anthony Mtz Discharge Orders/Prescriptions Prescriptions: No Action lisinopril 10 mg tablet 10 mg PO DAILY Qty: 20 0RF acetaminophen [Pain Relief (acetaminophen)] 325 mg tablet 650 mg PO Q4H PRN (Reason: pain) Antacid Ext Str (calcium carb) 300 mg (750 mg) tablet,chewable 300 mg PO TID PRN (Reason: dyspepsia) bismuth subsalicylate [Digestive Relief] 262 mg/15 mL suspension 524 mg PO Q1H PRN (Reason: indigestion) Rx Instructions: do not exceed 8 doses in a 24 hour period ibuprofen [Advil] 200 mg tablet 400 mg PO TID PRN (Reason: pain) Referrals / Follow Up: Care Physician,No Primary [Primary Care Provider] - Disposition Disposition (needs filled in before D/C Order can be placed): Acute Care Hospital Charges/Coding Visit Charges Inpatient E&M: 75327 Disch Hosp >30min
--- NOTE | 2023-12-16 14:00 | NURSING ---
[facility]
--- NOTE | 2023-12-18 14:01 | CL.D_ITS ---
Patient Name: ANTONIO KHOURY Study Date: 12/16/2023 Performing: Scar Hayes MD Ht: 71 inches 180.34 cm : 1950 Wt: 189.6 lbs 85.9 kg Age: 72 Gender: male BSA: 2.06 PROCEDURE(S) PERFORMED [id number])[facility] CLINICAL PROFILE AND INDICATIONS Indications: NSTEMI Heart Failure: None CONCLUSIONS Multivessel coronary artery disease RECOMMENDATIONS Refer for possible CABG DESCRIPTION OF PROCEDURE The patient arrived to the procedure lab. The risks and benefits of the procedure as well as a full description of our services here and current unavailability of surgical backup were fully explained to the patient and/or their significant other prior to the catheterization. The Timeout was completed, verifying the correct patient and procedure. The patient's procedural site was prepped and draped in the usual fashion. Local anesthetic was given subcutaneously to right radial region with Lidocaine 2%. Using a modified Seldinger technique, arterial access was obtained via the right radial artery, a 6Fr sheath was inserted. Left Coronary Artery selective angiography was performed in multiple views using a 5 Fr. JL3.5 catheter. Right Coronary Artery selective angiography was then performed in multiple views using a 5 Fr. JR 4 catheter.The arterial sheath was pulled and a TR Band was applied for hemostasis. 13cc of air CORONARY ANGIOGRAPHY DOMINANCE: Right Dominant LEFT MAIN: Mild luminal irregularities LEFT ANTERIOR DESCENDING ARTERY: PROX LAD: 100 % Stenosis. Mid and distal LAD fill via collateral from the right and to a lesser extent from bridging collaterals CIRCUMFLEX ARTERY: PROX CIRC: 80 % Stenosis MID CIRC: 100 % Stenosis RAMUS: Mild luminal irregularities RIGHT CORONARY ARTERY: OSTIAL RCA: 70 % Stenosis MID RCA: 95 % Stenosis RT PLV: 80 % Stenosis COMPLICATIONS No Complications PROCEDURE MEDICATIONS Fentanyl 50 mcg IV Versed 1 mg IV Oxygen: 2 L/min via nasal cannula Heparin given IA 12/16/2023 10:18:58 Verapamil 2.5mg, Ntg 100mcgs, 3000 units of Heparin given IA 12/16/2023 10:18:58 SUMMARY OF HEMODYNAMIC DATA Time AIR REST ECG 10:01:11 AO 123/88 (106) SA 10:20:37 Signed By Scar Hayes MD On 12/18/2023 14:01:31 Scar Hayes MD
== END 2023-12-16 15:04 | disposition short-term general hospital (02) | DRG 282 ==
LOC: ED 20:24 → PCU 21:05
PROVIDERS: Admitting Provider Internal Medicine; Emergency Provider Emergency Medicine; Visit Provider Student in an Organized Health Care Education/Training Program
DX: I21.4 Non-ST elevation (NSTEMI) myocardial infarction (principal); E66.3 Overweight; I10 Essential (primary) hypertension; F12.10 Cannabis abuse, uncomplicated; R63.4 Abnormal weight loss; K21.9 Gastro-esophageal reflux disease without esophagitis; Z91.199 Patient's noncompliance with other medical treatment and regimen due to unspecified reason; Z68.26 Body mass index [BMI] 26.0-26.9, adult; Z86.16 Personal history of COVID-19; Z87.891 Personal history of nicotine dependence
CPT/HCPCS: 36415; 71260; 74177; 80048; 80053; 80061; 83690; 84443; 84484; 85025; 85027; 85379; 85610; 85730; 93005; 93306; 93458; 97802; 99152; 99153; 99285; J7030; J7040; Q9967; A4216; C1769; C1894

== ENCOUNTER → 2024-01-10 | Outpatient (CLI) | payer MEDICARE, SELFPAY ==
--- NOTE | 2024-01-10 08:44 | ECHOL_ITS ---
Reason For Study: ISCH CMP Procedure This was a limited 2D transthoracic echocardiogram. Exam performed in department. Left Ventricle Normal LV size. The estimated ejection fraction is 50 %. Hypokinesis of the anterior wall and apex. Mitral Valve There is moderate mitral annular calcification. There is no mitral valve stenosis. Aortic Valve Trisinus/trileaflet aortic valve. Moderate diffuse aortic valve thickening. There is no aortic stenosis. MMode/2D Measurements & Calculations LVIDd: 5.2 cm IVSd: 1.1 cm Ao root diam: 3.9 cm LVIDs: 3.9 cm LVPWd: 1.2 cm FS: 24.9 % LAV(MOD-bp): 48.4 ml LVAd ap4: 35.6 cm2 SV(MOD-sp4): 59.3 ml LAV(MOD-bp) Indexed: 23.8 ml/m2 LVLd ap4: 9.6 cm LAV(MOD-sp2): 45.5 ml EDV(MOD-sp4): 109.8 ml LAV(MOD-sp4): 36.8 ml EDV(sp4-el): 112.2 ml LVAs ap4: 22.5 cm2 LVLs ap4: 8.5 cm ESV(MOD-sp4): 50.4 ml ESV(sp4-el): 50.2 ml EF(MOD-sp4): 54.0 % EF(sp4-el): 55.2 % SV(sp4-el): 61.9 ml LA A4 area: 14.4 cm2 LA dimension(2D): 3.4 cm RA A4 area: 13.8 cm2 ECHO/Echo, Limited Study Interpretation Summary Limited study The estimated ejection fraction is 50 %. Hypokinesis of the anterior wall and apex Ordering Physician: Bhavya Summers Referring Physician: Bhavya Summers Performed By: Deepa Pham RCS
== END | disposition home or self-care (01) ==
LOC: CVS 08:39
PROVIDERS: Referring Provider Nurse Practitioner Gerontology; Visit Provider Nurse Practitioner Gerontology
DX: I25.5 Ischemic cardiomyopathy (principal)
CPT/HCPCS: 93308

== ENCOUNTER → 2024-01-30 | Outpatient (CLI) | payer MEDICARE, SELFPAY ==
[2024-01-30 15:36] LABS: BNP,B-Type NATRIURETIC PEPTIDE 279.9 pg/mL (0-100)
[2024-01-30 15:38] LABS: Anion Gap 7 (5-15); BUN 16 mg/dL (7-18); Calcium,Total 9.4 mg/dL (8.5-10.1); Chloride 109 mmol/L (98-107); Creatinine, Serum 1.07 mg/dL (0.70-1.30); EST Glomerular Filtration Rate 72 mL/min (>60); Est Glom Filt Rate - Afr Amer 87 mL/min (>60); Glucose 124 mg/dL (74-106); Potassium 4.1 mmol/L (3.5-5.1); Sodium Level 139 mmol/L (136-145)
== END | disposition home or self-care (01) ==
PROVIDERS: Referring Provider Nurse Practitioner Gerontology; Visit Provider Nurse Practitioner Gerontology
DX: I25.5 Ischemic cardiomyopathy (principal); R60.9 Edema, unspecified; R06.00 Dyspnea, unspecified
CPT/HCPCS: 36415; 80048; 83880

== ENCOUNTER → 2024-02-10 | Outpatient (CLI) | payer MEDICARE, SELFPAY ==
[2024-02-10 11:25] LABS: Anion Gap 5 (5-15); BUN 23 mg/dL (7-18); BUN/Creat Ratio 26.1 RATIO (10-20); Calcium,Total 9.7 mg/dL (8.5-10.1); Chloride 107 mmol/L (98-107); Creatinine, Serum 0.88 mg/dL (0.70-1.30); EST Glomerular Filtration Rate 90 mL/min (>60); Est Glom Filt Rate - Afr Amer 109 mL/min (>60); Glucose 102 mg/dL (74-106); Potassium 4.2 mmol/L (3.5-5.1); Sodium Level 139 mmol/L (136-145)
== END | disposition home or self-care (01) ==
LOC: LAB 09:30
PROVIDERS: Referring Provider Nurse Practitioner Gerontology; Visit Provider Nurse Practitioner Gerontology
DX: I25.5 Ischemic cardiomyopathy (principal); R60.0 Localized edema; R79.89 Other specified abnormal findings of blood chemistry
CPT/HCPCS: 36415; 80048